=== PATIENT | female | born 1995 | race African-American/Black ===

== ENCOUNTER 2022-01-30 15:23 | Emergency (ER) | payer BC, SELFPAY ==
--- NOTE | ~2022-01-30 | XR_ITS ---
[id number] DATE: 01/30/2022 16:25 INDICATION: Right rib pain. Injury one week ago. TECHNIQUE: PA chest. 3 views of the right ribs. COMPARISON: None FINDINGS: Normal heart size. No hilar or mediastinal enlargement. The lungs are clear. No pleural eff usion or pulmonary vascular congestion or pneumothorax. No right rib fracture is evident. IMPRESSION: Negative Reviewed, dictated and finalized at [facility] Reviewed, dictated and finalized at [facility] IMPRESSION: Negative
[2022-01-30 15:28] VITALS: BP 124/84; PULSE 65; RESP 16; TEMP 36.8; O2SAT 100
--- NOTE | 2022-01-30 16:51 | ED.GENADULT ---
HPI - General Adult General Chief complaint: Unspecified Stated complaint: Breast Soreness Time Seen by Provider: 01/30/22 15:56 Source: patient Mode of arrival: ambulatory Limitations: no limitations History of Present Illness HPI narrative: Pt is a 26 y/o female, presents to ED via POV with C/O right anterior chest wall pain and discomfort in the right breast for the past week after a family member tripped and fell onto her while she was sleeping on the floor. She denies difficulty breathing or ecchymosis but endorses pain with movement, especially when lifting objects with the RUE at work. She has not attempted any modifying factors. She denies chance of Onset (ago): week(s) (1) Location: chest Radiation: non-radiation Relieving factors: rest Exacerbating factors: movement Associated symptoms: denies other symptoms Treatments prior to arrival: none Related Data Allergies Allergy/AdvReac Type Severity Reaction Status Date / Time No Known Allergies Allergy Verified 01/30/22 15:25 Review of Systems Musculoskeletal: Musculoskeletal: Reports no additional musculoskeletal complaints and Reports as per HPI Exam Const: General: cooperative, healthy appearing, comfortable, no acute distress, well developed, alert, awake and Physically active Nutritional Appearance: average body habitus Orientation/consciousness: oriented to person Limitations: no limitations HENMT: Head: normal to inspection, normocephalic and atraumatic Ears: hearing grossly normal bilaterally General nose exam: Normal external nose present and Normal nares present Face and sinus: normal facial exam and face symmetric Mouth: Yes Normal oral and palatal mucosa present and Yes lip normal Eyes: General: appearance normal, both eyes and all related structures Conjunctivae: conjunctivae normal Sclera: sclerae normal Pupils: Equal, round and reactive pupils present and Pupils normal by confrontation Neck: Neck: normal visual inspection, full ROM, no lymphadenopathy, no meningeal signs and supple Thyroid: thyroid normal Carotids: normal carotid upstroke Lymphatic: no lymphadenopathy noted Chest: Chest palpation & inspection: normal inspection of the chest Resp: Effort & Inspection: normal respiratory effort, able to speak in complete sentences and symmetric chest movement (TTP over the right anterior chest wall, no ecchy, crepitus or subq emphysem) Auscultation: clear to auscultation bilaterally Cardio: Jugular venous distension: no JVD Palpation: normal PMI Rate: regular rate Rhythm: regular rhythm Heart sounds: S1 normal heart sound present and S2 normal heart sound present Peripheral pulses: Peripheral pulses 2+ throughout and other (chest wall is stable, no paradoxical movements. Breasts are normal on exam) GI: Inspection: normal to inspection GI Palp: Yes abdominal tenderness Auscultation: normal bowel sounds Rectal Exam: deferred Skin: General skin exam: normal color and no rashes or lesions noted Lesions: no lesions Rashes: no rashes Trauma: no lacerations or abrasions Wounds: no wounds Neuro: General: oriented to person, oriented to place, oriented to time, patient oriented x3, moves all extremities and no meningeal signs Cranial nerves: Yes CN's II-XII intact bilaterally, Yes Facial sensation intact/muscles of mastication intact and Yes Intact sense of smell present Cognition (Neuro): normal cognition Speech: normal speech Gait exam (Neuro): Normal gait present Motor exam (neuro): 5/5 motor strength present throughout, Abnormal motor strength present and Abnormal muscle tone present Sensory Exam: normal sensation and Sensory deficit (Neuro) Extrem: Right upper extremity: normal to inspection, full ROM and normal capillary refill Left upper extremity: normal to inspection and full ROM Course Course Emergency Course: Pt is advised of imaging results and plan to discharge home with RICE instructions, NSAIDs and low dose muscle relaxant,
[2022-01-30 17:28] VITALS: BP 121/79; PULSE 71; RESP 16; O2SAT 99
== END 2022-01-30 17:29 | disposition home or self-care (01) ==
PROVIDERS: Emergency Provider Nurse Practitioner Family
DX: S20.211A Contusion of right front wall of thorax, initial encounter (principal); W51.XXXA Accidental striking against or bumped into by another person, initial encounter
CPT/HCPCS: 71101; 99283

== ENCOUNTER 2022-12-14 10:07 | Observation (INO) | payer MEDICAID, SELFPAY ==
[2022-12-14 10:28] VITALS: TEMP 37.2
[2022-12-14 10:31] VITALS: BP 142/85; PULSE 75
[2022-12-14 10:46] VITALS: BP 140/116; PULSE 58
[2022-12-14 10:58] VITALS: BMI 31.7
--- NOTE | 2022-12-14 10:58 | OBADM ---
This patient, Eun Dutta, admitted to the OB room Labor/Delivery/Recovery 105 for observation. Patient/family oriented to hospital policies and general routines including ID bracelet, bed and alarms, visiting hours, pain management, procedures, bathroom and other care routines, personal items, smoking policy, room service/diet, and visiting hours. Patient/Family are encouraged to report perceived risks to care and to ask questions if they do not understand what they are told or what they should do. Pt. presents via EMS with reports of abdominal pain, states ctxns are every 20-30 minutes. IV noted in L AC, EMS states they checked her cervix and is closed. No vaginal bleeding noted, EFM x2 applied, will monitor.
[2022-12-14 11:03] VITALS: BP 129/73; PULSE 61
[2022-12-14 11:06] LABS: Appearance Urine Clear (Clear); Bilirubin Urine Negative (Negative); Blood Urine Negative (Negative); Color Urine Yellow (Yellow); Glucose Urine UA Negative (Negative); Ketones Urine Negative (Negative); Leukocyte Esterase Ur 1+ LEU/UL (Negative); Nitrate Urine Negative (Negative); Protein Urine Negative (Negative); Specific Grav Ur 1.015 (1.001-1.035); Urobilinogen Urine 0.2 mg/dL (<2.0); pH Urine 7.5 (5.0-9.0)
[2022-12-14 11:08] LABS: RBC Urine 0-2 /hpf (0-2); Squamous Epithelial Cell Urine Rare /hpf (Few); WBC Urine 0-3 /hpf
[2022-12-14 11:20] LABS: Add Urine Microscopic? YES
--- NOTE | 2022-12-14 11:31 | PC.NURSE ---
1130--Report to Dr. Grace re: u/a results and cervix closed, fhr tracing. Orders to DC home.
--- NOTE | 2022-12-21 11:17 | PM.OBTRLD ---
OB - Triage/Final Diagnosis Visit Information Comments/Additional reasons for admission: I have assessed the risk for this patient, Eun Dutta, and determined that she would benefit from observation care. Evaluation Laboratory results: Laboratory Tests 12/14/22 10:49 Urine Color Yellow Urine Appearance Clear Urine pH 7.5 Ur Specific [place] 1.015 Urine Protein Negative Urine Glucose (UA) Negative Urine Ketones Negative Ur Blood (Man) Negative Urine Nitrate Negative Urine Bilirubin Negative Urine Urobilinogen 0.2 Leukocyte Esterase Rfl 1+ H Urine RBC 0-2 Urine WBC 0-3 Ur Squamous Epith Cells Rare Final Diagnosis (1) Irregular contractions: Code(s): O47.9 - False labor, unspecified Status: Acute
== END 2022-12-14 12:35 | disposition home or self-care (01) ==
PROVIDERS: Admitting Provider Obstetrics & Gynecology; Visit Provider Obstetrics & Gynecology
DX: O47.9 False labor, unspecified (principal); O26.899 Other specified pregnancy related conditions, unspecified trimester; R10.9 Unspecified abdominal pain
CPT/HCPCS: 81001; G0378; G0379